=== PATIENT | male | born 1960 | race Caucasian/White ===

== ENCOUNTER 2016-07-05 19:44 | Observation (INO) | payer MEDICAID, OTHER ==
[2016-07-05 19:45] VITALS: O2SAT 97
[2016-07-05] MEDS ORDERED: DIPHTH/TETANUS/ACEL PERTUSSIS (BOOSTER) 0.5 ML VIAL/PFS IM ONE (19:57)
[2016-07-05] MEDS ORDERED: ceFAZolin 2 GM PREMIX 50 ML IV STA (19:57)
[2016-07-05] MEDS ORDERED: SODIUM CHLOR 0.9% 1000 ML INJ 1,000 ML IV SCH (20:00)
[2016-07-05] MEDS ORDERED: IOHEXOL 350 MG/ML 10 ML VIAL (for RAD DIAG) IV ONE (20:04)
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
[2016-07-05 20:15] LABS: AUTOMATED NEUTROPHIL # 8.6 TH/MM3 (1.8-7.7); BASOPHIL # 0.1 TH/MM3 (0-0.2); BASOPHIL % 0.9 % (0.0-2.0); EOSINOPHIL # 0.7 TH/MM3 (0-0.4); EOSINOPHIL % 4.9 % (0.0-4.0); HEMATOCRIT 41.3 % (39.0-51.0); HEMO FLAGS DIFF FINAL; LYMPH % 26.1 % (9.0-44.0); LYMPHOCYTE # 3.9 TH/MM3 (1.0-4.8); MEAN CELL VOLUME 89.3 FL (80.0-100.0); MEAN CORPUSCULAR HEMOGLOBIN 31.4 PG (27.0-34.0); MEAN CORPUSCULAR HGB CONC 35.1 % (32.0-36.0); MONO % 10.4 % (0.0-8.0); NEUT % 57.7 % (16.0-70.0); PLATELET COUNT 293 TH/MM3 (150-450); RED BLOOD COUNT 4.63 MIL/MM3 (4.50-5.90); RED CELL DISTRIBUTION WIDTH 13.7 % (11.6-17.2); WHITE BLOOD COUNT 14.9 TH/MM3 (4.0-11.0)
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
[2016-07-05 20:23] LABS: APTT (PATIENT) 26.1 SEC (24.3-30.1); INTERNATIONAL NORMALIZED RATIO 1.1 RATIO; PROTHROMBIN TIME - PATIENT 11.8 SEC (9.8-11.6)
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
[2016-07-05 20:49] LABS: I-STAT POTASSIUM 3.8 MMOL/L (3.5-4.9)
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
[2016-07-05 21:05] VITALS: O2SAT 98
[2016-07-05 21:06] VITALS: BP 128/70; PULSE 74; RESP 18; O2SAT 98
[2016-07-05] MEDS ORDERED: oxyCODONE/ACETAMINOPHEN 5 MG/325 MG TAB PO PRN (22:15)
[2016-07-05] MEDS ORDERED: MORPHINE SULFATE 4 MG/ML INJ IV PRN (22:15)
[2016-07-05] MEDS: oxyCODONE/ACETAMINOPHEN 5 MG/325 MG TAB PO PRN (22:41)
[2016-07-05 22:48] VITALS: BP 127/71; PULSE 75; RESP 24; TEMP 98; O2SAT 99
[2016-07-06 00:25] VITALS: BP 127/71; PULSE 75; RESP 24; TEMP 98; O2SAT 99
[2016-07-06 04:34] VITALS: BP 119/72; PULSE 69; RESP 18; TEMP 98.4; O2SAT 96
[2016-07-06] MEDS ORDERED: DOCU1CAP39 PO (06:22)
[2016-07-06] MEDS ORDERED: MILKSUS PO (06:22)
[2016-07-06 07:58] VITALS: BP 132/62; PULSE 85; RESP 18; TEMP 99.7; O2SAT 95
[2016-07-06] MEDS: oxyCODONE/ACETAMINOPHEN 5 MG/325 MG TAB PO PRN (08:32)
[2016-07-06] MEDS ORDERED: DOCUSATE SODIUM 100 MG CAP PO SCH (09:00)
[2016-07-06] MEDS ORDERED: FAMOTIDINE 20 MG TAB PO SCH (09:00)
[2016-07-06] MEDS ORDERED: MAGNESIUM HYDROXIDE SUSP 30 ML CUP PO SCH (21:00)
== END 2016-07-06 10:07 | disposition home or self-care (01) ==
LOC: NEPI 19:44 → EDBD 20:13 → NEDA 20:13 → NEPGCP 22:24
PROVIDERS: ADMIT Surgery; ATTEND Surgery
DX: S09.90XA Unspecified injury of head, initial encounter (principal); V29.9XXA Motorcycle rider (driver) (passenger) injured in unspecified traffic accident, initial encounter; F10.129 Alcohol abuse with intoxication, unspecified; F17.200 Nicotine dependence, unspecified, uncomplicated; I25.10 Atherosclerotic heart disease of native coronary artery without angina pectoris; M54.9 Dorsalgia, unspecified; M25.511 Pain in right shoulder; N13.30 Unspecified hydronephrosis; S32.038A Other fracture of third lumbar vertebra, initial encounter for closed fracture; Z95.0 Presence of cardiac pacemaker
CPT/HCPCS: 70450; 71010; 71260; 72125; 72128; 72131; 72170; 73020; 74177; 80307; 82435; 82565; 82947; 84132; 84295; 84520; 85025; 85610; 85730; 86850; 86900; 86901; 86920; 90471; 90715; 94150; 99291; G0378; G0390; J0690; J2270; J7030; L0150; Q9967